=== PATIENT | female | born 1990 | race Caucasian/White ===

== ENCOUNTER → 2017-12-04 | Emergency (ER) | payer OTHER ==
[~2017-12-04] VITALS: Ht 157.5 cm; Wt 49.9 kg
[~2017-12-04] MED LIST: PRENATAL CAPLE1 EACH PO
== END | disposition home or self-care (01) ==
LOC: ER 09:07
DX: K52.9 Noninfective gastroenteritis and colitis, unspecified (principal); B34.9 Viral infection, unspecified

== ENCOUNTER 2023-11-15 12:00 | Outpatient (CLI) | payer OTHER | END 2023-11-15 12:05 | disposition home or self-care (01) | LOC: PRENATAL 12:00 | PROVIDERS: ATTEND Obstetrics & Gynecology Maternal & Fetal Medicine | DX: O36.80X0 Pregnancy with inconclusive fetal viability, not applicable or unspecified (principal); Z36.82 Encounter for antenatal screening for nuchal translucency; Z36.9 Encounter for antenatal screening, unspecified; Z3A.12 12 weeks gestation of pregnancy ==

== ENCOUNTER 2024-03-05 14:21 | Outpatient (CLI) | payer OTHER | END 2024-03-05 14:22 | disposition home or self-care (01) | LOC: PRENATAL 14:21 | PROVIDERS: ATTEND Obstetrics & Gynecology Maternal & Fetal Medicine | DX: O26.849 Uterine size-date discrepancy, unspecified trimester (principal); O43.90 Unspecified placental disorder, unspecified trimester; Z3A.28 28 weeks gestation of pregnancy ==

== ENCOUNTER → 2024-04-16 | Outpatient (CLI) | payer OTHER | END | disposition home or self-care (01) | LOC: PRENATAL 13:38 | PROVIDERS: ATTEND Obstetrics & Gynecology Maternal & Fetal Medicine | DX: O26.843 Uterine size-date discrepancy, third trimester (principal); O36.8130 Decreased fetal movements, third trimester, not applicable or unspecified; Z3A.34 34 weeks gestation of pregnancy ==

== ENCOUNTER 2024-05-12 22:29 | Inpatient (IN) | payer OTHER ==
[~2024-05-12] VITALS: Ht 160 cm; Wt 62.6 kg
[2024-05-13 00:07] VITALS: BP 113/65
[2024-05-13] MEDS ORDERED: AMPICILLIN SODIUM 2,000 MG VIAL ONE (00:35)
[2024-05-13 00:58] LABS: URINE APPEARANCE Clear; URINE BILIRRUBIN Negative (NEGATIVE); URINE BLOOD Negative; URINE COLOR Yellow; URINE GLUCOSE Negative (NEGATIVE); URINE LEUKOCYTE Negative; URINE NITRATE Negative; URINE PROTEIN Negative (NEGATIVE)
[2024-05-13 01:00] LABS: MEAN CELL VOLUME 97.5 fL (80.00-100.00); MEAN CORPUSCULAR HEMOGLOBIN 33.6 pg (27.00-32.0); MEAN CORPUSCULAR HGB CONC 34.5 g/dl (32.0-36.0); PLATELET COUNT 143 K/uL (150-450); RED BLOOD COUNT 3.28 M/uL (4.00-6.00); RED CELL DISTRIBUTION WIDTH 13.4 % (11.5-14.5)
[2024-05-13 01:02] LABS: URINE BACTERIA 549.3 uL (0.0-1933); URINE EPITHELIAL CELLS 6.1 uL (0.0-38.8); URINE RBC 16.3 uL (0.0-20.8); URINE WBC 6.6 uL (0.0-23.2)
[2024-05-13 01:13] LABS: URINE CRYSTALS MANY /HPF; URINE KETONE 40 (NEGATIVE)
[2024-05-13 01:25] LABS: INR < 0.93; PARTIAL THROMBOPLASTIN TIME 29.6 SECONDS (22.0-34.0); PROTHROMBIN TIME 9.9 SECONDS (9.0-11.5)
[2024-05-13 01:29] LABS: ALBUMIN 2.6 gm/dL (3.4-5.0); BILIRUBIN TOTAL 0.27 mg/dL (0.3-1.2); CALCIUM 8.8 mg/dL (8.5-10.1); CREATININE SERUM 0.59 mg/dL (0.55-1.02); GFR 116.68; GLOBULINA 3.5 G/DL (2.4-3.5); POTASSIUM 3.99 mEq/L (3.5-5.1); TOTAL PROTEIN 6.1 gm/dL (6.4-8.2)
[2024-05-13] MEDS ORDERED: ADULT ASPIRIN81 MG PO (01:56)
[2024-05-13] MEDS ORDERED: FOLIC ACID20 MG (01:57)
[2024-05-13] MEDS ORDERED: AMPICILLIN SODIUM 2,000 MG VIAL IV ONE (02:30)
[2024-05-13] MEDS ORDERED: RINGERS SOLUTION,LACTATED 1,000 ML IV SCH (02:30)
[2024-05-13 03:37] VITALS: BP 106/62
[2024-05-13] MEDS ORDERED: AMPICILLIN SODIUM 1,000 MG VIAL IV SCH (04:00)
[2024-05-13 08:03] VITALS: BP 105/64
[2024-05-13] MEDS ORDERED: OXYTOCIN 500 ML IV SCH (10:45)
[2024-05-13] MEDS ORDERED: ERYTHROMYCIN BASE 1 GM TUBE OP ONE ×2 (10:58→15:00)
[2024-05-13] MEDS ORDERED: OXYTOCIN 20 UNITS/1000ML RL PIGGYBAG IV ONE (10:59)
[2024-05-13] MEDS ORDERED: LIDOCAINE HCL 1% 10ML VIAL ONE (10:59)
[2024-05-13] MEDS ORDERED: CHLORHEXIDINE GLUCONATE 120 ML BOTTLE TOP ONE ×2 (10:59→15:00)
[2024-05-13 14:01] VITALS: BP 112/50
[2024-05-13] MEDS ORDERED: ACETAMINOPHEN 500 MG GEL..CAP PO PRN (14:30)
[2024-05-13] MEDS ORDERED: OXYTOCIN 1,000 ML IV SCH (14:30)
[2024-05-13 15:51] VITALS: BP 113/55
[2024-05-13 16:54] VITALS: BP 97/60
[2024-05-13 18:36] LABS: HEMATOCRIT 33.2 % (36.0-45.00); HEMOGLOBIN 11.6 g/dL (12.0-15.00); MEAN CELL VOLUME 97.2 fL (80.00-100.00); MEAN CORPUSCULAR HEMOGLOBIN 33.9 pg (27.00-32.0); MEAN CORPUSCULAR HGB CONC 34.8 g/dl (32.0-36.0); RED BLOOD COUNT 3.42 M/uL (4.00-6.00); RED CELL DISTRIBUTION WIDTH 13.7 % (11.5-14.5)
[2024-05-13 18:38] LABS: PLATELET COUNT 129 K/uL (150-450)
[2024-05-14 01:50] VITALS: BP 113/70
[2024-05-14 08:50] VITALS: BP 97/61
[2024-05-14] MEDS ORDERED: PNV,CALCIUM 72/IRON/FOLIC ACID 1 TAB TABLET PO SCH (09:00)
[2024-05-14 16:40] VITALS: BP 104/66
[2024-05-15] VITALS: BP 95/60
[2024-05-15 08:00] VITALS: BP 105/70
== END 2024-05-15 15:51 | disposition home or self-care (01) | DRG 807 ==
LOC: LDR 22:29 → OB/GYN 05-13 14:19
PROVIDERS: ADMIT Student in an Organized Health Care Education/Training Program; ATTEND Student in an Organized Health Care Education/Training Program
PROC: 4A1HXCZ Monitoring of Products of Conception, Cardiac Rate, External Approach (ICD-10-PCS; 2024-05-12)
PROC: 10E0XZZ Delivery of Products of Conception, External Approach (ICD-10-PCS; principal; 2024-05-13)
DX: O41.03X0 Oligohydramnios, third trimester, not applicable or unspecified (principal); Z37.0 Single live birth; O99.824 Streptococcus B carrier state complicating childbirth; Z3A.38 38 weeks gestation of pregnancy; Z20.822 Contact with and (suspected) exposure to COVID-19